=== PATIENT | female | born 1980 | race Caucasian/White ===

== ENCOUNTER 2017-02-19 19:08 | Emergency (ER) | payer OTHER ==
[~2017-02-19] VITALS: Ht 162.6 cm; Wt 81.5 kg
[2017-02-19] MEDS ORDERED: ALBU8.5H8 IH (19:19)
[2017-02-19 22:30] VITALS: BP 128/72
== END 2017-02-19 22:41 | disposition home or self-care (01) ==
LOC: EMS 19:09
DX: M79.672 Pain in left foot (principal); R03.0 Elevated blood-pressure reading, without diagnosis of hypertension; F41.9 Anxiety disorder, unspecified; Z79.899 Other long term (current) drug therapy
CPT/HCPCS: 99285